=== PATIENT | male | born 1950 | race Caucasian/White ===

== ENCOUNTER → 2019-02-22 | Outpatient (CLI) | payer MEDICARE ==
[2019-02-22 16:48] LABS: HCT 43.3 % (39.0-53.0); HGB 14.6 gm/dL (13.0-17.5); MCH 30.7 pg (25.0-35.0); MCHC 33.7 g/dL (31.0-37.0); MCV 91.3 fL (80.0-100.0); Mean Platelet Volume 7.7; Platelet Count 254 k/uL (150-450); RBC 4.74 m/uL (4.30-5.90); RDW 13.6 % (11.5-15.5); WBC 8.3 k/uL (3.8-10.6)
[2019-02-23 00:58] LABS: Albumin 4.8 g/dL (3.80-4.90); Anion Gap 13.8 mmol/L (4.00-12.00); Calcium 9.8 mg/dL (8.7-10.3); Carbon Dioxide 26.2 mmol/L (21.6-31.8); Globulin 1.2 g/dL (1.6-3.3); LDL Cholesterol,Calculated 93.8 mg/dL (0.0-131.0); Potassium 4.6 mmol/L (3.5-5.5); Total Bilirubin 0.8 mg/dL (0.2-1.2); VLDL Calculation 33.2 mg/dL (5.00-40.00)
== END | disposition home or self-care (01) ==
LOC: LABWHC1 15:30
PROVIDERS: ATTEND Family Medicine
DX: E78.00 Pure hypercholesterolemia, unspecified (principal); I10 Essential (primary) hypertension; R35.1 Nocturia
CPT/HCPCS: 36415; 80053; 80061; 84153; 85027

== ENCOUNTER → 2021-09-11 | Outpatient (CLI) | payer MEDICARE ==
[2021-09-11 13:36] VITALS: BP 133/69; PULSE 58; RESP 18; TEMP 97.8
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
== END | disposition home or self-care (01) ==
LOC: PNWHC3 13:23
PROVIDERS: ATTEND Student in an Organized Health Care Education/Training Program
DX: M54.81 Occipital neuralgia (principal); M50.30 Other cervical disc degeneration, unspecified cervical region; M47.892 Other spondylosis, cervical region; M54.12 Radiculopathy, cervical region
CPT/HCPCS: 99202

== ENCOUNTER 2021-10-22 11:26 | Day surgery (SDC) | payer MEDICARE ==
[2021-10-18 14:47] VITALS: BMI 34.0
[~2021-10-22 11:26] MED LIST: LACTATED RINGERS 1,000 ML IV SCH
[2021-10-22 11:45] VITALS: TEMP 97.7
[2021-10-22] MEDS ORDERED: MIDAZOLAM 2 MG/2 ML VIAL ONE (11:59)
[2021-10-22] MEDS ORDERED: TRIAMCINOLONE ACETONIDE 40 MG/ML 1 ML VIAL ONE (11:59)
[2021-10-22] MEDS ORDERED: ROPIVACAINE 5MG/ML 20ML VIAL ONE (11:59)
--- NOTE | 2021-10-22 12:06 | P.PCN ---
Date of Procedure: 10/22/21 Surgeon: Geoffrey Peraza Pathology: none sent Condition: stable Disposition: PACU Description of Procedure: Pre-operative diagnosis: 1- occipital neuralgia Post Operative Diagnosis 1- occipital neuralgia Procedure: 1- Left greater and lesser occipital nerve block ANESTHESIA: Local with Lidocaine 1 % EBL: Minimal The patient states that he never felt pain on the right side of his occiput and that's why we changed the procedure from bilateral injection to left side occipital nerve block. PROCEDURE INDICATION: The patient with neck pain and headache secondary to occipital neuralgea unresponsive to conservative treatments. PROCEDURE DESCRIPTION / TECHNIQUE: The patient was seen and identified in the preoperative area. Risks, benefits, complications, and alternatives were discussed with the patient, the patient agreed to proceed with the procedure and signed the consent. IV was started. Vital signs remained stable throughout the procedure. Patient was taken to the OR and time out was completed. The patient was placed in the prone position on the procedure table. . The cervical area and right occiptial area were prepped with chloraprep. Critical pause was taken. Vital signs were closely monitored during the procedure. The the occipital exuberance and superior nuchal line were identified on the left side of the occiput. The greater occipital nerve location was estimated to be medial to the occipital artery . I used 25-gauge 1-1/2 inch needle to go through the skin and infiltrate 2.5 MLS of a solution made up of 2 MLS Ropivacaine 0.5% +20 mg of Kenalog. Patient tolerated procedure well.
[2021-10-22] MEDS ORDERED: IV FLUID CONTINUATION 1,000 ML IV ONE (12:12)
[2021-10-22 12:25] VITALS: BP 103/64; PULSE 70; RESP 8
== END 2021-10-22 12:40 | disposition home or self-care (01) ==
LOC: ORPAIN 11:26
PROVIDERS: ATTEND Anesthesiology
DX: M54.81 Occipital neuralgia (principal)
CPT/HCPCS: 64405; J2250; J3301; J2795

== ENCOUNTER → 2022-01-15 | Outpatient (CLI) | payer MEDICARE ==
--- NOTE | 2022-01-15 22:37 | CT ---
EXAMINATION TYPE: CT brain wo con DATE OF EXAM: 01/15/2022 COMPARISON: MRI dated 05/30/2015 HISTORY: 71-year-old male, frequent falls, bilateral headaches CT DLP: 1133.3 mGycm Automated exposure control for dose reduction was used. TECHNIQUE: CT scan of the brain is performed without IV contrast administration. FINDINGS: Brain volume loss changes, likely age-related. Scattered arterial atherosclerotic calcification. Smal l chronic left cerebellar and left thalamic infarcts, appreciated in the previous MRI. No acute intra cranial hemorrhage. No gross acute cortical infarct. No midline shift, herniation or ventriculomegaly . Unremarkable mercado-white matter differentiation, basal cisterns, sella and CP angles. No gross space-o ccupying lesion, vasogenic edema or mass effect. Prominent optic nerve sheath complexes, appreciated previously and probably insignificant. Unremarkable orbits otherwise. Chronic inflammatory changes changes of the left maxillary sinus. Mild opacification of the inferior mastoid air cells. No aggressive bone lesion. IMPRESSION: Brain volume loss changes and a few chronic small infarcts as described above. No acute intracranial hemorrhage or gross acute cortical infarct. No gross space-occupying lesion by this nonenhanced CT sc an. Other incidental findings as described above. Further MRI assessment can be considered if clinically required.
== END | disposition home or self-care (01) ==
LOC: RADCTMAIN 18:25
PROVIDERS: ATTEND Psychiatry & Neurology Neurology
DX: R51.9 Headache, unspecified (principal); Z86.73 Personal history of transient ischemic attack (TIA), and cerebral infarction without residual deficits
CPT/HCPCS: 70450

== ENCOUNTER → 2025-03-29 | Outpatient (CLI) | payer MEDICARE ==
--- NOTE | 2025-03-30 07:16 | MR ---
EXAMINATION TYPE: MR angio head wo con DATE OF EXAM: 03/29/2025 COMPARISON: NONE HISTORY: Drusen of optic disc bilateral, Losing sight in left eye, floaters, Forgetfulness TECHNIQUE: Time of flight images focusing on the [place] of [place] were performed without contrast.. 2-D and 3-D postprocessing imaging is performed. FINDINGS: There are codominant vertebral arteries patent to the basilar junction. There is a patent l eft-sided posterior communicating artery. There is hypoplastic right-sided posterior communicating ar isaias. No large vessel occlusion or aneurysm in the posterior circulation is identified. Anterior circulation shows hypoplastic right A1 segment with filling of the 2 segment due to patent a nterior communicating artery. No large vessel occlusion or aneurysm is evident. IMPRESSION: Normal variant to [place] & [place] of [place]. No aneurysm is seen. [facility], , 03/30/2025 7:14 AM
--- NOTE | 2025-03-30 07:20 | MR ---
EXAMINATION TYPE: MR brain/orbits wo/w con DATE OF EXAM: 03/29/2025 COMPARISON: CT brain January 15, 2022 HISTORY: Drusen of optic disc bilateral, Losing sight in left eye, floaters, Forgetfulness TECHNIQUE: Multiplanar, multisequence images of the brain and brainstem along with bilateral orbits are all perf ormed without and with IV contrast, utilizing 12 mL intravenous Gadobutrol . FINDINGS: Diffusion weighted images demonstrate no evidence of a recent infarct or other diffusion ab normality. There is no significant white matter signal abnormality. Moderate ventricular and sulcal prominence is seen. Midline structures demonstrate normal morphology. The craniocervical junction appears within normal limits. Post contrast images demonstrate no abnormal enhancement or enhancing masses. The dural veno us sinuses appear patent. Bilateral aphakia is present. Rectus muscles are symmetric and within normal limits. There is no abno rmal enhancing intraorbital mass identified. Suprasellar cistern is maintained. Optic chiasm is not e ffaced. IMPRESSION: Moderate diffuse cerebral atrophy. No suspicious findings identified to correlate with surekha dias's clinical symptoms. [facility], , 03/30/2025 7:18 AM
== END | disposition home or self-care (01) ==
LOC: RADMRIMAIN 15:58
PROVIDERS: ATTEND Psychiatry & Neurology Neurology
DX: H47.323 Drusen of optic disc, bilateral (principal); Z86.73 Personal history of transient ischemic attack (TIA), and cerebral infarction without residual deficits; G31.9 Degenerative disease of nervous system, unspecified
CPT/HCPCS: 70544; 70543; 70553; A9585